=== PATIENT | male | born 1985 | race Caucasian/White ===

== ENCOUNTER → 2017-01-17 | Emergency (ER) | payer OTHER ==
[~2017-01-17] MED LIST: DEXAMETHASONE 10 MG/ML VIAL IVP ONE; IOPAMIDOL (ISOVUE-300) 100 ML BTL ONE; KETOROLAC 30 MG/1 ML SDV IVP ONE; NS 500 ML IV ONE
[2017-01-17 17:06] VITALS: RESP 16
--- NOTE | 2017-01-17 17:27 | EDPHY ---
H & P Time Seen by Provider: 01/17/17 17:11 HPI/ROS: HPI Sensation of mass in throat. 31-year-old male by private vehicle. This patient reports that since 9:00 a.m. this morning he has had a sensation of something pushing against the right side of his larynx. He describes this as a sensation of fullness or a mass that is putting pressure on his larynx. He denies any voice changes. He denies any difficulty breathing. No stridor. He has had no difficulty swallowing. This sensation is not associated with eating solid foods, drinking liquids and swallowing. He reports he has had this sensation intermittently for the last 4- 5 months. He reports that it has not been as bad in the past as it was today. He reports he took 400 mg of ibuprofen at home and had no relief. He reports he took 25 mg of Benadryl and did have some relief in this sensation but when the Benadryl or off it came back stronger than it was so he decided to come to the emergency department. He describes having mild soreness in his throat. ROS: Constitutional: No fever, no chills. No weakness. Eyes: No discharge. No changes in vision. ENT: As above. No nasal congestion or rhinorrhea. Respiratory: No cough. No shortness of breath. Cardiac: No chest pain, no palpitations. Gastrointestinal: No abdominal pain, no vomiting, no diarrhea. Musculoskeletal: No back pain. As above. No myalgias or arthralgias. Skin: No rashes. Neurological: No headache. No focal weakness or altered sensation. Past medical history: He denies any significant past medical history. He is not on any prescription medications. Social history: Here by himself. Nonsmoker. No alcohol. Physical Exam: General Appearance: Alert, no distress. This patient is responding to questions appropriately and in full sentences. This patient appears well- hydrated and well-nourished. Eyes: Pupils equal and round no pallor or injection. No lid edema, erythema or injection. ENT, Mouth: Mucous membranes are moist. The pharyngeal tissues are unremarkable. No edema or swelling. No asymmetry suggestive of abscess. No erythema or exudates. No stridor on auscultation of his neck. No voice changes. No masses or soft tissue abnormalities appreciated on palpation of the para laryngeal and tracheal tissues bilaterally. Respiratory: There are no retractions, lungs are clear to auscultation with good air movement bilaterally. Cardiovascular: Regular rate and rhythm. No murmur. Neurological: Motor sensory function is grossly intact. Cranial nerves are normal. Gait is normal. Skin: Warm and dry, no rashes. Musculoskeletal: Neck is supple and nontender. No pain on flexion of the neck. Extremities are symmetrical. All joints range without pain or impingement. Psychiatric: No agitation. No depression. Database: EKG: Imaging: CT scan of neck with IV contrast: Normal study. No evidence of airway impingement, mass or other pathology. Results were discussed with staff radiologist Dr. Arcadio Adhikari. Procedures: Emergency department course: IV was placed. Vital signs reviewed and are normal. He has no contraindications to NSAIDs. No history of peptic ulcer disease. No history of renal dysfunction. He was given 30 mg of IV Toradol. He was given 10 mg of IV Decadron. He was started on IV normal saline with 500 cc to be given over the next hour. He consents to CT imaging of the neck to evaluate for mass and airway impingement. 6:35 p.m., patient re-evaluated. He is resting comfortably at this time. He reports he is now asymptomatic. Repeat exam he has no stridor on auscultation of his neck. No voice changes. He does not appear to be in any distress. He feels comfortable going home. I will have him follow up with his primary care physician whom he is to see later this week. ENT referral can be arranged if needed through his primary care physician. He is in agreement with this plan. Return to emergency department precautions discussed with him. All of his questions were answered. He was discharged in good condition. Differential Diagnosis: The differential diagnosis on this patient includes but is not limited to tracheal laryngeal mass, allergic reaction, anxiety reaction, esophageal spasm. This represents a partial list of diagnoses considered. These considerations are based on history, physical exam, past history, reassessment and diagnostic testing. Smoking Status: Former smoker Constitutional: Initial Vital Signs Temperature (C) 36.9 C 01/17/17 17:03 Heart Rate 79 01/17/17 17:03 Respiratory Rate 16 01/17/17 17:03 Blood Pressure 136/87 H 01/17/17 17:03 O2 Sat (%) 99 01/17/17 17:03 O2 Delivery Mode Room Air Allergies/Adverse Reactions: crab Allergy (Verified 01/17/17 17:06) Home Medications: Medication Instructions Recorded NK [No Known Home Meds] 01/17/17 Medical Decision Making - Data Points Laboratory Results: Laboratory Results 01/17/17 17:30 01/17/17 17:30 Sodium 143 mEq/L mEq/L (134-144) Potassium 3.5 mEq/L mEq/L (3.5-5.2) Chloride 101 mEq/L mEq/L (97-110) Carbon Dioxide 24 mEq/l mEq/l (22-31) Anion Gap 18 mEq/L H mEq/L (8-16) BUN 12 mg/dL mg/dL (7-23) Creatinine 0.8 mg/dL mg/dL (0.7-1.3) Estimated GFR > 60 Glucose 92 mg/dL mg/dL (70-100) Calcium 9.7 mg/dL mg/dL (8.5-10.4) Medications Given: Discontinued Medications Dexamethasone (Decadron Injection) 10 mg IVP EDNOW ONE Stop: 01/17/17 17:15 Last Admin: 01/17/17 17:47 Dose: 10 mg Sodium Chloride (Ns) 500 mls @ 0 mls/hr IV ONCE ONE; Wide Open PRN Reason: Protocol Stop: 01/17/17 17:21 Last Admin: 01/17/17 17:49 Dose: 500 mls Ketorolac Tromethamine (Toradol) 30 mg IVP EDNOW ONE Stop: 01/17/17 17:14 Last Admin: 01/17/17 17:44 Dose: 30 mg Departure - Departure Disposition: Home, Routine, Self-Care Clinical Impression: Sensation of lump in throat Condition: Good Instructions: Neck Pain (ED) Additional Instructions: Read and follow provided instructions. Follow-up with your primary care physician as scheduled this week for re- evaluation. You can be referred to an ENT specialist if needed by your primary care physician. You can take ibuprofen as needed for any pain involving her throat. Ibuprofen dosin mg every 6 hours with meals for the next 3 days only. Take only as needed for pain. Return to the emergency department for worsening symptoms, voice changes, difficulty breathing, stridor, difficulty swallowing or other serious concerns.
[2017-01-17 17:50] LABS: ANION GAP 18 mEq/L (8-16); CALCIUM 9.7 mg/dL (8.5-10.4); CARBON DIOXIDE 24 mEq/l (22-31); CHLORIDE 101 mEq/L (97-110); CREATININE 0.8 mg/dL (0.7-1.3); GLOMERULAR FILTRATION RATE > 60; GLUCOSE 92 mg/dL (70-100); POTASSIUM 3.5 mEq/L (3.5-5.2); SODIUM 143 mEq/L (134-144)
[2017-01-17 19:06] VITALS: BP 137/82; PULSE 74; TEMP 98.2; O2SAT 96
== END | disposition home or self-care (01) ==
LOC: CED 16:52
DX: R09.89 Other specified symptoms and signs involving the circulatory and respiratory systems (principal); E86.9 Volume depletion, unspecified; Z87.891 Personal history of nicotine dependence
CPT/HCPCS: 70491-PO; 80048-PO; 96374; J1100; J1885; Q9967